=== PATIENT | female | born 1955 | race Two or more races ===

== ENCOUNTER 2020-06-19 22:32 | Emergency (ER) | payer MEDICAID ==
[~2020-06-19] VITALS: Ht 160 cm; Wt 72.6 kg
[2020-06-20 02:45] VITALS: BP 136/90
== END 2020-06-20 03:34 | disposition home or self-care (01) ==
LOC: ER 22:35
DX: B30.9 Viral conjunctivitis, unspecified (principal); F41.9 Anxiety disorder, unspecified